=== PATIENT | male | born 1950 | race African-American/Black ===

== ENCOUNTER 2018-03-16 02:33 | Emergency (ER) | payer OTHER ==
[~2018-03-16] VITALS: Ht 180.3 cm; Wt 93.0 kg
[~2018-03-16 02:33] MED LIST: ALLO300T2 PO; ATOR40TA70 PO; DILT-26 PO; RIVA20TA PO; [UNRECOGNIZED DRUG - OTHER] PO
[2018-03-16 02:35] VITALS: BP 112/67
== END 2018-03-16 03:10 | disposition left against medical advice (07) ==
LOC: ER 02:33
DX: Z53.21 Procedure and treatment not carried out due to patient leaving prior to being seen by health care provider (principal)

== ENCOUNTER 2025-09-09 15:00 | Emergency (ER) | payer OTHER ==
[~2025-09-09] VITALS: Ht 172.7 cm; Wt 95.0 kg
[2025-09-09 15:02] VITALS: O2SAT 100
[2025-09-09] MEDS: SODIUM CHLORIDE 0.9% 1,000 ML IV ONE (15:43)
[2025-09-09 15:52] LABS: BASOPHILS % 0.5 % (0.0-2.0); EOSINOPHILS % 1.1 % (0.0-5.0); HEMATOCRIT. 40.9 % (42.0-52.0); HEMOGLOBIN. 13.8 g/dL (14.0-18.0); LYMPHOCYTES % 32.0 % (20.0-50.0); MEAN PLATELET VOLUME 9.1 fl (7.4-10.4); MONOCYTES % 9.2 % (2.0-8.0); NEUTROPHILS % 57.2 % (40.0-76.0); PLATELET 177 x1000/uL (130-400); RED BLOOD CELL COUNT 4.68 mill/uL (4.7-6.1); RED CELL DISTRIBUTION WIDTH 14.5 % (11.6-14.6)
[2025-09-09 16:07] LABS: INR 1.2
[2025-09-09 16:08] LABS: CREATININE 1.3 mg/dL (0.6-1.3); UREA NITROGEN BLOOD 14 mg/dL (9-23)
[2025-09-09 16:09] LABS: ASPARTATE AMINOTRANSFERASE 16 IU/L (<34)
[2025-09-09 16:10] LABS: BILIRUBIN DIRECT 0.2 mg/dL (<=3.0); BILIRUBIN TOTAL 0.6 mg/dL (0.1-1.0); PROTEIN TOTAL 7.7 g/dL (6.0-8.3)
[2025-09-09 16:16] LABS: TROPONIN I HIGH SENSITIVITY 8 ng/L (3.0-53)
[2025-09-09 16:19] LABS: CLARITY URINE CLEAR (CLEAR); COLOR URINE YELLOW (YELLOW)
[2025-09-09 16:30] LABS: GLUCOSE URINE NEGATIVE (NEGATIVE); KETONES URINE TRACE (NEGATIVE); LEUKOCYTE ESTERASE URINE NEGATIVE (NEGATIVE); NITRITE URINE NEGATIVE (NEGATIVE); OCCULT BLOOD URINE NEGATIVE (NEGATIVE); PH URINE 6.0 (4.5-8.0); PROTEIN URINE TRACE (NEGATIVE); SPECIFIC GRAVITY URINE >=1.030 (1.005-1.030); UROBILINOGEN URINE 0.2 E.U./dL (0.2-1.0)
[2025-09-09 16:33] LABS: BACTERIA URINE TRACE; HYALINE CASTS URINE 0-5 /lpf; MUCUS URINE TRACE /lpf (NONE/TRACE); RBC URINE 0-2 /hpf (0-2); SQUAMOUS EPITHELIAL CELL URINE RARE /lpf (RARE/1+); WBC URINE 0-2 /hpf (0-2)
[2025-09-09 17:50] VITALS: TEMP 36.9
[2025-09-09 19:45] VITALS: BP 102/72; PULSE 87; RESP 16; O2SAT 98
[2025-09-10] MEDS ORDERED: IOHEXOL-350 100 ML BOTTLE ONE (00:07)
== END 2025-09-09 20:15 | disposition short-term general hospital (02) ==
LOC: ER 15:00
DX: R55 Syncope and collapse (principal); E11.9 Type 2 diabetes mellitus without complications; I10 Essential (primary) hypertension; R06.02 Shortness of breath; Z86.73 Personal history of transient ischemic attack (TIA), and cerebral infarction without residual deficits; Z96.649 Presence of unspecified artificial hip joint; Z79.899 Other long term (current) drug therapy
CPT/HCPCS: 99285; 70496; 96360; 71045; 96361; 80076; 80048; 81003; 83880; 83605; 83735; 85025; 85379; 85610; 85730; 84484; 36415; 70498; 93005; 70450; Q9967; J7030